=== PATIENT | female | born 1950 | race Asian ===

== ENCOUNTER → 2019-01-22 | Outpatient (CLI) | payer MEDICARE | END | disposition home or self-care (01) | LOC: LAB SHORT 11:05 → LAB 11:05 | PROVIDERS: Physician Assistant Medical | DX: N89.8 Other specified noninflammatory disorders of vagina (principal) | CPT/HCPCS: 88175 ==

== ENCOUNTER → 2019-01-22 | Outpatient (CLI) | payer MEDICARE | END | disposition home or self-care (01) | LOC: LAB EV 12:31 → LAB SHORT 12:31 | DX: N89.8 Other specified noninflammatory disorders of vagina (principal) | CPT/HCPCS: 87070; 87205 ==

== ENCOUNTER 2019-10-21 23:28 | Inpatient (IN) | payer MEDICARE ==
[~2019-10-21] VITALS: Ht 162.6 cm; Wt 56.4 kg
[2019-10-22 00:35] LABS: BASOPHILS PERCENT AUTO 0 % (0-2); EOSINOPHILS PERCENT AUTO 0 % (0-6); Hematocrit 33.1 % (33.0-51.0); Hemoglobin 10.2 g/dL (11.5-16.0); IMMATURE GRAN ABSOLUTE AUTO 0.07 K/mm3 (0.00-0.10); IMMATURE GRAN PERCENT AUTO 1 % (0-1); LYMPHOCYTES ABSOLUTE AUTO 0.53 K/mm3 (0.84-5.20); LYMPHOCYTES PERCENT AUTO 5 % (21-46); MONOCYTES ABSOLUTE AUTO 0.54 K/mm3 (0.16-1.47); MONOCYTES PERCENT AUTO 5 % (4-13); Mean Corpuscular HGB 27.3 pg (26.0-34.0); Mean Corpuscular HGB Conc 30.8 g/dL (31.5-36.5); Mean Corpuscular Volume 89 fL (80-100); NEUTROPHILS ABSOLUTE AUTO 8.97 K/mm3 (1.96-9.15); NEUTROPHILS PERCENT AUTO 89 % (41-73); Platelet Count 603 K/mm3 (150-400); RDW Coefficient Variation 14.6 % (11.7-14.2); RDW Standard Deviation 46.2 fL (35.1-46.3); Red Blood Cell Count 3.74 M/mm3 (3.80-5.20); White Blood Cell Count 10.11 K/mm3 (4.00-11.30)
[2019-10-22 00:54] LABS: Alanine Aminotransfer (ALT/SGP 25 U/L (12-78); Albumin, Blood 2.2 g/dL (3.4-5.0); Albumin/Globulin Ratio 0.4 (0.8-1.8); Alk Phos 93 U/L (50-136); Anion Gap 10 mmol/L (6-16); Aspartate Aminotrans (AST/SGOT 156 U/L (12-37); Bilirubin, Total 0.4 mg/dL (0.1-1.0); Blood Urea Nitrogen 20 mg/dL (8-24); Bun/Creatinine Ratio 31.3 (12.0-20.0); CO2, Blood 24 mmol/L (21-32); Calcium, Blood 8.5 mg/dL (8.5-10.1); Chloride, Blood 104 mmol/L (98-108); Creatinine, Blood 0.64 mg/dL (0.40-1.00); Glomerular Filtration Rate >60 (60-); Glucose, Blood 95 mg/dL (70-99); Potassium, Blood 4.1 mmol/L (3.5-5.5); Sodium, Blood 138 mmol/L (136-145); Total Protein, Blood 7.2 g/dL (6.4-8.2)
--- NOTE | 2019-10-22 18:31 | NUR ---
SHIFT SUMMARY PT TO FLOOR LATE THIS AFTERNOON. PT AND DAUGHTER ORIENTED TO ROOM. ANSWERED QUESTIONS FOR PT AND DAUGHTER ABOUT TREATMENT AND PLAN FOR ADMISSION. PT CURRENTLY SITTING UP IN BED, DENIES SOB AT THIS TIME. PT STATES IMPROVEMENT IN CONDITION OF LEGS.
--- NOTE | 2019-10-22 19:14 | NUR ---
Met with patient and physician and her friend from work. Pt lives at [facility]. She has seen a oncolgist in [place]. Pt denies pain but frequent grimace and discomfort in positioning. Pt goal is to not take medications and persue a more natural and spitual quest to her treatment. We reviewed hospice care and other options. After discussion of care. Pt was agreeable to speak with her doctor in [place] and asked me to call. Physican not in office today staff will have her call patient tomorrow. Patients jayy stated that they would like to care for her but they do not have the help and did not want her to pass away at the co-op. Patients sister is arriving [place]. Plan is to see if oncolgy can offer any palliative treatment that pt would accept and to transition home hopefully she will accept hospice support. She will also speak with her family [place] to discuss prognosis. Probable best discharge is to sisters home on hospice. Will suggest that her fiends form the co-op come all come to visit her as soon as possible.
[2019-10-23 05:33] LABS: Hematocrit 30.2 % (33.0-51.0); Hemoglobin 9.2 g/dL (11.5-16.0); Mean Corpuscular HGB 26.7 pg (26.0-34.0); Mean Corpuscular HGB Conc 30.5 g/dL (31.5-36.5); Mean Corpuscular Volume 88 fL (80-100); Mean Platelet Volume 8.9 fL (9.1-12.4); Platelet Count 523 K/mm3 (150-400); RDW Coefficient Variation 14.6 % (11.7-14.2); RDW Standard Deviation 46.7 fL (35.1-46.3); Red Blood Cell Count 3.44 M/mm3 (3.80-5.20); White Blood Cell Count 10.28 K/mm3 (4.00-11.30)
[2019-10-23 05:57] LABS: Alanine Aminotransfer (ALT/SGP 21 U/L (12-78); Albumin, Blood 2.3 g/dL (3.4-5.0); Albumin/Globulin Ratio 0.5 (0.8-1.8); Alk Phos 85 U/L (50-136); Anion Gap 11 mmol/L (6-16); Aspartate Aminotrans (AST/SGOT 149 U/L (12-37); Bilirubin, Total 0.4 mg/dL (0.1-1.0); Blood Urea Nitrogen 20 mg/dL (8-24); Bun/Creatinine Ratio 32.4 (12.0-20.0); CO2, Blood 25 mmol/L (21-32); Calcium, Blood 8.2 mg/dL (8.5-10.1); Chloride, Blood 102 mmol/L (98-108); Creatinine, Blood 0.62 mg/dL (0.40-1.00); Globulin, Blood 4.4 g/dL (2.2-4.0); Glomerular Filtration Rate >60 (60-); Glucose, Blood 79 mg/dL (70-99); Potassium, Blood 3.8 mmol/L (3.5-5.5); Sodium, Blood 138 mmol/L (136-145); Total Protein, Blood 6.7 g/dL (6.4-8.2)
--- NOTE | 2019-10-23 07:15 | NUR ---
SHIFT SUMMARY PT IS A 69 Y/O FEMALE, ADMITTED FOR METASTATIC CA AND FLUID OVERLOAD. SHE IS A&O X 4, AND A SBA/INDEPENDENT IN THE ROOM. PT REPORTS THAT HER BREATHING IS "MUCH BETTER" THIS AM, THOUGH HER LEGS ARE STILL AT 4+ PITTING EDEMA. VITAL SIGNS STABLE. PT DID REPORT MILD PAIN IN HER LOWER LEGS FROM "RUBBING" ON THE BED SHEETS, WHICH WAS IMPROVED AFTER LEGS WERE WRAPPED WITH GAUZE. NO OTHER COMPLAINTS OF PAIN, NAUSEA OR SOB. NO OTHER ACUTE CHANGES IN PT CONDITION NOTED. REPORT GIVEN TO ONCOMING RN.
--- NOTE | 2019-10-23 19:22 | NUR ---
SHIFT SUMMARY PT AXO, PLEASANT AND COOPERATIVE WITH CARE. DRESSINGS TO BLE CHANGED THIS SHIFT. MINOR WEEPING NOTED. +4 PITTING EDEMA TO BLE. PT DENIES PAIN, NV AND SOB. PT UP WITH ASSISTANCE FROM DAUGHTER TO BATHROOM THIS SHIFT. NO ACUTE CHANGES THIS SHIFT. VSS. BED IN LOW POSITION, CALL LIGHT WITHIN REACH. PT REFUSED LOVENOX THIS SHIFT. DAUGHTER AND ANOTHER SUPPORT PERSON IN PT ROOM THROUGHOUT THE DAY. DNR BAND PLACED AND PT STATES THAT SHE INDEED DOES WANT TO BE DNR STATUS.
--- NOTE | 2019-10-23 19:23 | NUR ---
Notified Dr manzanares this AM pt gave permission to send her diagnostics. Review of levels of care with patient and biopsy and having inpatient versus outpatient care. pt is going to have biopsy and then form plan iwth doctor manzanares for palliative treatment options versus hospice. Family at bedside will follow in am for support.
[2019-10-24 05:27] LABS: International Normalized Ratio 1.03
--- NOTE | 2019-10-24 06:51 | NUR ---
SHIFT SUMMARY PT IS A 69 Y/O FEMALE, ADMITTED FOR METASTATIC CA AND FLUID OVERLOAD. SHE IS A&O X 3, AND SBA/INDEPENDENT UP IN THE ROOM. PT DENIED ANY COMPLAINTS OF PAIN, NAUSEA OR SOB. VITAL SIGNS STABLE. PT IS AWAITING A THORACENTESIS TODAY. PER DAY SHIFT REPORT, PT REQUIRED A PT/PTT DONE PRIOR TO THE THORACENTESIS, WHICH WAS ORDERED AFTER CONSULTING DR CASTANEDA. NO OTHER ACUTE CHANGES IN PT CONDITION NOTED. WILL CONTINUE TO MONITOR AND TREAT PER EMAR UNTIL HAND OFF TO DAY SHIFT RN.
[2019-10-24 11:35] LABS: Automated BF RBC Count 0.002 M/mm3 (0-0); Automated BF WBC Count 0.756 K/mm3 (0-999); Body Fluid WBC Count 756 /mm3 (0-999)
[2019-10-24 12:01] LABS: Glucose, Body Fluid 86 mg/dL; Protein, Body Fluid 4.5 g/dL
[2019-10-24 12:03] LABS: Color, Body Fluid L Yellow (None-Yellow); Total Cell Count, Body Fluid 100
[2019-10-24 12:09] LABS: pH, Body Fluid 6.1
[2019-10-24 12:22] LABS: Lactate Dehydrogenase, Body Fl 1382 U/L
--- NOTE | 2019-10-24 15:52 | NUR ---
pt resting distraught over not feeling well not wanting totake medications. plan is to keep her here today. Hope is she can get some treatment on sunday. limited visit she was getting a massage from her daughter.
--- NOTE | 2019-10-24 18:48 | NUR ---
PATIENT STARTED OUT WITH NAUSEA THIS MORNING AND WAS GIVEN SOME IV ZOFRAM WHICH DID NOT SEEM TO HELP. SHE THEN WENT TO HER [facility] AND RETURNED FEELING MISERABLE; DR MILLER WAS PLANNING TO DISCHARGE THE PATIENT HOME HOWEVER HELD THE DISCHARGE DUE TO THE PATIENT CONDITION. PATIENT'S DAUGHTER HAS REMAINED AT HER BEDSIDE AND HAS BEEN A HUGE HELP. PATIENT DID REFUSE IV LASIX AND DR MILLER NOTIFIED SO IT WAS DISCONTINUED.
--- NOTE | 2019-10-25 07:54 | NUR ---
SHIFT SUMMARY PATIENT ALERT AND ORIENTED. PATIENT WAS FEELING SHORT OF BREATH AND WAS PLACED ON 1 LITER OF O2 VIA NASAL CANULA. PATIENT HAD NOT COMPLAINT OF PAIN AND WAS ABLE TO SLEEP MOST OF THE NIGHT. IV PATENT AND FLUSHED. BED IN LOWEST POSITION WITH WHEELS LOCKED. CALL LIGHT WITHIN REACH. REPORT GIVEN TO ONCOMING RN.
--- NOTE | 2019-10-25 10:30 | NUR ---
[facility] CARE VISIT: REQUEST PER ACC, PER DR MAXWELL TO REVIEW HOSPICE and goals of care. Review of EMR, [facility] care notes and Case conferenced with pt's bedside RN prior to my visit. Upon arrival, pt sitting at side of bed, trying to lean/rest on her side sitting upright. She does not appear comfortable. I introduced myself to pt and to malinda, Merissa, who is visiting from out of area. Pt appears profoundly fatigued, frail, sallow in color. She denies pain or need for any comfort medications. When asked if there was anything she could think of that would make her more comfortable she said a back rub. I spent 15 minutes rubbing pt's back, shoulders and neck gently while I spoke to pt and her malinda. She is cachectic with no muscle mass noted. She stated she was comforted and calmed at the conclusion of my visit. Hot tea and refreshments brought to Merissa. She also appears very fatighed and stressed with the current situation. She is very attentive to her mom. Terell consistently verbalizes her desire to follow thru with bx results, see her oncologist & pursue any treatment available for her cancer. When discussing d/c planning, pt & daughter are clear that Terell cannot return to the home in [place] on [address] [facility] because there are no caregivers there and it is 45 minutes or more from medical help. Malinda states she lives remotely and three hours away from her mom's drs, so going to her home is not an option either. We discussed the limited options locally that would provide the 24 hour care Terell needs & that would accomodate her desire to see her drs in [place] and get chemo or other treatments from her drs in [facility]. We reviewed hospice goals of care extensively. Pt is not interested in hospice or comfort care at this time. She and Merissa are interested in finding placement in [place]. Community options of Adult Foster Care, LTC in long term and Assisted living discussed. I believe pt's care needs are greater than an assisted living facility could manage and told both pt/malinda this. I inquired re: resources to help pay for care and explained that medical insurance does not pay for fdc 24 hour care. Merissa states there are some savings available to assist with paying for care. I gave her a ballpark figure of what LTC or adult FH might cost locally. I explanied that I do not know if that is consistent for [facility]/facilities. Merissa/pt informed there are no CM staff on weekend to meet with them but will be Sunday. Manufacturing Technology Analyst order placed with details of pt's placement options needs noted. Report on my visit given to pt's RN and Dr Maxwell.
--- NOTE | 2019-10-25 18:31 | NUR ---
PATIENT DENIES PAIN AND DISCOMFORT TODAY AND STATES SHE FEELS MUCH BETTER THAN YESTERDAY. HYPOTENSIVE BUT NOT SYMPTOMATIC. RE-WRAPPED BLE WITH KERLEX PER PATIENT REQUEST FOR WEEPING. PATIENT JUST REQUESTED A FULL LIQUID, VEGAN DIET FROM THE [facility]; ORDER PLACED ASKED. DAUGHTER REMAINS AT BESIDE. WILL CONTINUE TO MONITOR AND PROVIDE CARE NEEDED.
--- NOTE | 2019-10-26 06:45 | NUR ---
SHIFT SUMMARY PATIENT ALERT AND ORIENTED. VERY PLEASANT. RESTED IN BED ALL NIGHT. WEARING 1 LITER O2 VIA NASAL CANULA NEEDED. IV PATENT AND FLUSHED. BED IN LOWEST POSITION WITH WHEELS LOCKED. CALL LIGHT WITHIN REACH. REPORT GIVEN TO ONCBEAR DRISCOLL.
--- NOTE | 2019-10-26 10:00 | NUR ---
[facility] care clinical visit made. Pt is not taking any PO medications for comfort or otherwise per eMAR. She is lying on her side while evy rubs back and hips. Pt reports this is the best method of pain relief/management for her to be able to rest and relax. Pt appears much more comfortable and relaxed this am than she did yesterday. She asks if I have any news on her biopsy or anything else and I tell her I do not. I let them know staff would be in tomorrow and I had left messages for them with details of her needs for help with dc planning. Spoke with RN after my visit. [facility] will continue supportive visits and renew the conversation re: EOL care pending biopsy results and/or pt's wishes to explore that further pending discussions with Drs on tx options available or if no tx options available.
--- NOTE | 2019-10-26 15:41 | NUR ---
PATIENT SEEMS TO BE DOING ABOUT WELL YESTERDAY. NO COMPLAINTS OF PAIN, NAUSEA OR DISCOMFORT. PATIENT AMBULATES IN ROOM WITH FWW WITH DAUGHTER SBA. VITALS HAVE BEEN STABLE. BLE CONTINUE TO HAVE +4 WEEPING EDEMA, WRAPPED WITH KERLIX. PATIENT CONTINUES TO WAIT FOR DISCHARGE PENDING A HEAD PORTER CONSULT REGARDING HOUSING. WILL CONTINUE TO MONITOR AND PROVIDE CARE NEEDED.
--- NOTE | 2019-10-27 07:39 | NUR ---
SHIFT SUMMARY PATIENT ALERT AND ORIENTED. SLEPT WELL ALL NIGHT. IV PATENT AND FLUSHED. PATIENT SHOWERED AT HER REQUEST AND LEGS REWRAPPED. BED IN LOWEST POSITION WITH WHEELS LOCKED. CALL LIGHT WITHIN REACH. REPORT GIVEN TO ONCOMING RN.
--- NOTE | 2019-10-27 14:38 | NUR ---
Called by daughter for help with advance care planning. requesting information on a will. information given and where she can get a notary. aroma therpy given to pt she is resting. Awaiting path report. Daughter states she is hoping to fight some of the progression of disease.
--- NOTE | 2019-10-27 15:25 | NUR ---
permission for care i, glenis guo [facility] occupational health nursing director, received permission to provide care on 10-28-2019
--- NOTE | 2019-10-27 15:56 | NUR ---
Initial spiritual care note: Met with pt and dtr at bedside. Terell is soft-spoken with a gentle demeanor. She denies pain, but admits to being concerned about dx and POC. Awaiting biopsy and oncology input. She beleives in God and an afterlife. She denies fear of . Dtr appears concerned, loving, and devoted. Supported and affirmed beleifs. Provided theraputic listening with emotional affirmation. Pt and family complimentary of palliative care team's support. I will remain available.
--- NOTE | 2019-10-27 19:36 | NUR ---
SHIFT SUMMARY NO ACUTE CHANGES THIS SHIFT. PT HAS HAD NO COMPLAINTS OF SHORTNESS OF BREATH, NAUSEA, OR PAIN THIS SHIFT. PT UP TO BATHROOM WITH 1 ASSIST AND FWW. OXYGEN AT 1 LITER VIA NC. FAMILY AT BEDSIDE. WAITING FOR DR. TILLMAN TO CONSULT. REPORT GIVEN TO JUDD RN. CALL LIGHT IN REACH.
--- NOTE | 2019-10-28 19:35 | NUR ---
SHIFT SUMMARY PT STILL NOT HAVING MUCH APPETITE. THIS RN ENCOUARGED TO DRINK FLUIDS. PT TOOK SHOWER THIS SHIFT WITH STUDENT NURSE. PT TIRED AFTER THIS AFTERNOON. UP TO BATHROOM WITH ASSIST. STILL DENIES NEEDING ANYTHING FOR PAIN OR NAUSEA. FAMILY IN WITH PT MOST OF THE DAY. DR. TILLMAN TO BE IN TO SEE PT AGAIN IN THE AM. NO ACUTE CHANGES THIS SHIFT. CALL LIGHT IN REACH. REPORT GIVEN TO JUDD DRISCOLL.
--- NOTE | 2019-10-29 18:32 | NUR ---
SHIFT SUMMARY- PT A/O, PLESANT AND COOPERATIVE. FAMILY AT BEDSIDE. PT WENT FOR A BIOPSY THIS AFTERNOON. HER APPITITE IS POOR. AMBULATING TO THE RESTROOM WITH ONE ASSIST.
--- NOTE | 2019-10-29 23:28 | NUR ---
LATE ENTRY 2300 ANALYTICAL TECHNICIAN EXPRESSED THAT WHILE PATIENT WAS IN RESTROOM, HAD AN EPISODE OF EMESIS. WENT IN TO CHECK ON PATIENT. EXPLAINED TO PATIENT THAT WE HAVE MEDICAL INTERVENTIONS THAT CAN BE USED TO HELP EASE THE NAUSEA. PATIENT DECLINED NEED FOR SUCH INTERVENTION AT THIS TIME.
--- NOTE | 2019-10-29 23:28 | NUR ---
LATE ENTRY 2129 PATIENT STATED THAT SHE WAS FEELING NAUSEATED, BUT REFUSED ANY MEDICAL INTERVENTION AT THAT TIME.
--- NOTE | 2019-10-30 06:00 | NUR ---
SHIFT SUMMARY A/O, ABLE TO MAKE NEEDS KNOWN. COOPERATIVE WITH CARE. CALLS AND ANSWERS QUESTIONS APPROPRIATELY. NO C/O PAIN/DISCOMFRT. DID STATE NAUSEA; BUT WHEN OFFERED INTERVENTION, REFUSED. APPEARED TO REST MUCH OF SHIFT. UP 1P ASSIST TO BATHROOM. NO ACUTE CHANGES NOTED OVERNIGHT. BED REMAINED IN LOWEST POSITION. CALL LIGHT AND BELONGINGS WITHIN REACH. WCTM. REPORT TO ONCOMING RN.
--- NOTE | 2019-10-30 17:43 | NUR ---
Routine spiritual care note: Terell was asleep, but awakens to presence and voice. She appears very weak. Pt's friend, Dada, and her dtr were at bedside. All three were pleasantly withdrawn and said little. Terell smiles weakly and denies pain/concerns. She tells me they expect biospy results tomorrow and will determine POC then. Dtr seems on the edge of tears, but did not wish to talk. Migration Agent services will remain available.
--- NOTE | 2019-10-30 18:43 | NUR ---
SHIFT SUMMARY PT HAS NOT BEEN DRINKING/EATING THIS SHIFT. PT HAS NOT VOIDED ALL SHIFT AND HAS BEEN SLEEPING MOST OF THE DAY. THIS RN TALKED WITH DR. BRAVO AND DISCUSSED WITH HER THAT PT NOT EATING/DRINKING/VOIDING. DR. BRAVO ORDERED CLINIMIX AND PT HAS AGREED TO HAVE IVF. WILL REPORT TO NOC RN.
--- NOTE | 2019-10-31 07:00 | NUR ---
SHIFT SUMMARY A/O, ABLE TO MAKE NEEDS KNOWN. COOPERATIVE WITH CARE. CALLS AND ANSWERS QUESTIONS APPROPRIATELY. NO C/O PAIN/DISCOMFORT. REFUSED PEPCID; STATED DID NOT HAVE ANY ACID INDIGESTION AT THAT TIME. 1P ASSIST /c FWW AND GB; SLOW STEADY GAIT. NEW ORDER FOR 1BAG OF CLINIMIX; INFUSED T/O SHIFT W/O COMPLICATION. UP SEVERAL TIMES TO VOID. VSS/AFEBRILE. NO ACUTE CHANGES NOTED OVERNIGHT. BED IN LOWEST POSITION. CALL LIGHT AND BELONGINGS WITHIN REACH. WCTM. REPORT TO ONCOMING RN.
--- NOTE | 2019-10-31 12:53 | NUR ---
[facility] Care visit to pt and her malinda, Merissa. Pt is sound asleep and did not wake when I entered and spoke to her and Merissa. Pt does not look comfortable. Malinda reports that Terell won't take medications for pain, nausea, anxiety because she is super sensitive to medications and is afraid of bad reactions. Merissa and I stepped out of the room and spoke for a time. Merissa is needing help researching placement options for her mom, regardless of what Terell chooses re: treatment. Discussed TRAY and need to hire caregivers if she chose that level of semi-independent care setting. Discussed residential and Adult Foster homes and gave Merissa a list of local . Case conferenced with CM and passed on Merissa's request to meet with them as soon as possible to discuss. Pt is still awaiting bx report and further information from Dr Wilburn. Discussed with Merissa possibility that her mom may not tolerate treamtments for her advanced cancer. Merissa states her mom is aware that she is growing weaker and more ill by the day. Merissa is showing caregiver fatigue and distress. She has not left the hospital for many days and has not been home to [facility] since arriving here last week. She reports fatigue from massaging her mom for pain relief for many hours a day. Encouraged more rest, self care and time outside/away for respite for herself. Tea brought to her. [facility] Care to continue to visit for support.
--- NOTE | 2019-10-31 18:18 | NUR ---
SHIFT SUMMARY. PT CONTINUES WITH POOR APPETITE AND LETHARGY. PT REPORTS ABD DISCOMFORT ALTHOUGH DOES NOT WANT ANY FURTHER INTERVENTIONS FOR SYMPTOM MANAGEMENT. NO SOB OR N/V. NO NEW CHANGES.
--- NOTE | 2019-11-01 04:57 | NUR ---
SHIFT SUMMARY: VSS. AFEB. DENIES PAIN IN GENERAL. DENIES ABD TENDERNESS W/PALPATION. LLE +4 PITTING EDEMA, RLE +3 PITTING EDEMA. NO VISIBLE WHEEPING. SUCKING ON ICE CHIPS AND STATES SHE WAS ABLE TO TOLERATE 5 PIECES OF FRUIT. DENIES N/V. REFUSED SCHEDULED MEDS. SMILES AND INTERACTS PLEASANTLY. MAKES NEEDS KNOWN. A/OX3. HAS SLEPT THROUGH MUCH OF THE NIGHT. WILL CONT TO MONITOR.
[2019-11-01 06:00] LABS: BASOPHILS ABSOLUTE AUTO 0.01 K/mm3 (0.00-0.23); BASOPHILS PERCENT AUTO 0 % (0-2); EOSINOPHILS PERCENT AUTO 0 % (0-6); Hematocrit 28.8 % (33.0-51.0); Hemoglobin 8.8 g/dL (11.5-16.0); IMMATURE GRAN ABSOLUTE AUTO 0.12 K/mm3 (0.00-0.10); IMMATURE GRAN PERCENT AUTO 1 % (0-1); LYMPHOCYTES ABSOLUTE AUTO 0.37 K/mm3 (0.84-5.20); LYMPHOCYTES PERCENT AUTO 4 % (21-46); MONOCYTES ABSOLUTE AUTO 0.59 K/mm3 (0.16-1.47); MONOCYTES PERCENT AUTO 6 % (4-13); Mean Corpuscular HGB 26.8 pg (26.0-34.0); Mean Corpuscular HGB Conc 30.6 g/dL (31.5-36.5); Mean Corpuscular Volume 88 fL (80-100); Mean Platelet Volume 9.6 fL (9.1-12.4); NEUTROPHILS ABSOLUTE AUTO 8.51 K/mm3 (1.96-9.15); NEUTROPHILS PERCENT AUTO 89 % (41-73); Platelet Count 456 K/mm3 (150-400); RDW Coefficient Variation 16.2 % (11.7-14.2); RDW Standard Deviation 50.4 fL (35.1-46.3); Red Blood Cell Count 3.28 M/mm3 (3.80-5.20)
[2019-11-01 06:36] LABS: Alanine Aminotransfer (ALT/SGP 23 U/L (12-78); Albumin, Blood 1.7 g/dL (3.4-5.0); Albumin/Globulin Ratio 0.4 (0.8-1.8); Alk Phos 92 U/L (50-136); Anion Gap 9 mmol/L (6-16); Aspartate Aminotrans (AST/SGOT 153 U/L (12-37); Bilirubin, Total 0.4 mg/dL (0.1-1.0); Blood Urea Nitrogen 21 mg/dL (8-24); Bun/Creatinine Ratio 43.7 (12.0-20.0); CO2, Blood 24 mmol/L (21-32); Calcium, Blood 8.2 mg/dL (8.5-10.1); Chloride, Blood 105 mmol/L (98-108); Creatinine, Blood 0.48 mg/dL (0.40-1.00); Globulin, Blood 4.3 g/dL (2.2-4.0); Glomerular Filtration Rate >60 (60-); Glucose, Blood 69 mg/dL (70-99); Potassium, Blood 4.2 mmol/L (3.5-5.5); Sodium, Blood 138 mmol/L (136-145)
--- NOTE | 2019-11-01 12:31 | NUR ---
LIPIDS/CLINIMIX This RN attempted to hang IV meds above. Patient declined at this time. Will try again when patient is agreeable.
--- NOTE | 2019-11-01 17:11 | NUR ---
Shift Summary A/Ox4, cooperative with care. Patient had a shower and worked with physical therapy today. Multivitamins with Clinimix started, Soledad (Advertising Sales Consultant) aware. Denies pain, nausea, vomiting. PO remains inadequate. Up in room with assistance. Merissa (daughter) at bedside throughout the day. No other acute concerns.
--- NOTE | 2019-11-02 05:31 | NUR ---
SHIFT SUMMARY: A/OX3. MAKES NEEDS KNOWN. AMB W/ 1 ASSIST AND FWW TO BATHROOM. SITS AT EDGE OF BED FOR SEVERAL MINUTES TRYING TO CATCH BREATH PRIOR TO GETTING UP TO WALK. 02 SAT 95% ON 1L VIA NC. REPORTING DISCOMFORT IN ABDOMEN, DESCRIBES IT A BLOATED FEELING. DOES NOT WANT ANY MEDICATIONS, ROUTINE OR PRN. PLEASANT, SMILING AND INTERACTIVE. APPEARS TO HAVE SLEPT THROUGH MUCH OF THE NIGHT, RESTING QUIETLY IN BED. WILL CONT TO MONITOR.
[2019-11-02 05:33] LABS: Anion Gap 11 mmol/L (6-16); Blood Urea Nitrogen 23 mg/dL (8-24); Bun/Creatinine Ratio 44.1 (12.0-20.0); CO2, Blood 23 mmol/L (21-32); Calcium, Blood 8.1 mg/dL (8.5-10.1); Chloride, Blood 105 mmol/L (98-108); Creatinine, Blood 0.52 mg/dL (0.40-1.00); Glomerular Filtration Rate >60 (60-); Glucose, Blood 78 mg/dL (70-99); Magnesium, Blood 2.4 mg/dL (1.6-2.4); Phosphorus, Blood 2.1 mg/dL (2.5-4.9); Potassium, Blood 4.5 mmol/L (3.5-5.5); Sodium, Blood 139 mmol/L (136-145)
--- NOTE | 2019-11-02 18:16 | NUR ---
Shift Summary Patient has been weaker today, difficulty to stand from sitting on commode and requiring moderate assist which is new to this RN. No c/o pain, nausea, vomiting. VSS, tolerating parenteral nutrition well. No other concerns.
[2019-11-03 06:11] LABS: Anion Gap 11 mmol/L (6-16); Blood Urea Nitrogen 25 mg/dL (8-24); Bun/Creatinine Ratio 51.1 (12.0-20.0); CO2, Blood 22 mmol/L (21-32); Chloride, Blood 104 mmol/L (98-108); Creatinine, Blood 0.49 mg/dL (0.40-1.00); Glomerular Filtration Rate >60 (60-); Glucose, Blood 71 mg/dL (70-99); Magnesium, Blood 2.5 mg/dL (1.6-2.4); Phosphorus, Blood 2.2 mg/dL (2.5-4.9); Potassium, Blood 4.4 mmol/L (3.5-5.5); Sodium, Blood 137 mmol/L (136-145)
--- NOTE | 2019-11-03 07:29 | NUR ---
SHIFT SUMMARY: A/OX3. COMMUNICATES NEEDS. UP W/1 ASSIST IN ROOM. MOTIVATED TO GET STRONGER AND IS TAKING SHORT WALKS AROUND HER ROOM EVERY TIME SHE GETS UP. ABD LARGE, HARD, NONTENDER. +FLATUS AND PT REPORTS PASSING SMALL STOOLS. DENIES ABD PAIN. NO ACUTE CHANGES.
--- NOTE | 2019-11-03 15:04 | NUR ---
Pal Care Visit: Met with pt, evy and family friend, Ilda. Pt is c/o increased sob, even with turning in bed and soboe/conversation noted. Pt's abdomen is firm, extended/rounded, appearing in late months of gestation. Pt describes spasmotic, gripping abdominal pain that made her feel like she was being "bent in half". Progression of s/s with abdominal masses or ascites discussed, including possibility of diaphram function being impaired with pressure from abd distention. Pt has continued to decline medications for comfort. IV nutrition and fluids are running, which pt has now agreed upon. EMR and Dr's PN reviewed. Plan is for pt to receive first chemo tx for stage IV ovarian cancer here in the hospital and then f/u as an outpatient with Dr Wilburn for ongoing scheduled treatments that he discussed with pt/family this am. Pt will be d/c'd from hospital after first tx. This was discussed with Merissa and Terell. Terell was in/out of dosing. She and Merissa asked about completing an advanced directive. I reviewed a blank AD and POLST with them and we completed a POLST together based on pt's expressed wishes. When discussing s/s that pt was experiencing and anxious about she expressed "this is the most humilating time in my life". We explored that statement further. Pt is feeling very vulnerable and uncomfortable with her illness and her growing needs for care. We discussed the human condition and expectation that each of us would need help from another in our lives and at end of life. Discussed that some of pt's s/s may not be alieviated with chemo and she may have worsening s/s or new s/s experienced with tx. Pt ate a few bites of her soup at lunch and is drinking water. Her appetite is nonexistant but she forces herself to try to eat bites per pt/evy. Time spent for support of pt and her daughter, listening and encouragement to express her feelings. Pt is normally very stoic and does not express her feelings often. Report given to pt's RN on my visit and POLST done/awaiting Dr segundo. Also called update report to FARHAT Roberson, assisting Josef in exploring d/c options for care needed on d/c.
--- NOTE | 2019-11-03 18:13 | NUR ---
SHIFT SUMMARY PT A/O X 3. FAMILY AND FRIENDS AT THE BEDSIDE TO MAKE REQUESTS ON BEHALF OF PT. TOILETING COMPLETED REQUESTED. PT HAD A LOWER EXTREMITY DUPLEX COMPLETED TO R/O DVT. PT EXHIBITS PROGRESSIVE RESTLESSNESS DEMONSTRATED THROUGH FREQUENT REPOSITIONING. NO ACUTE CHANGES NOTED THROUGHOUT SHIFT. PT HAD PALLIATIVE CARE CONSULT WITH FAMILY TODAY, NETWORK ANNOUNCER MET WITH PT. LN TO CONTINUE TO MONITOR.
[2019-11-04 05:59] LABS: BASOPHILS ABSOLUTE AUTO 0.01 K/mm3 (0.00-0.23); BASOPHILS PERCENT AUTO 0 % (0-2); EOSINOPHILS PERCENT AUTO 0 % (0-6); Hematocrit 29.3 % (33.0-51.0); Hemoglobin 8.8 g/dL (11.5-16.0); IMMATURE GRAN ABSOLUTE AUTO 0.13 K/mm3 (0.00-0.10); IMMATURE GRAN PERCENT AUTO 1 % (0-1); LYMPHOCYTES ABSOLUTE AUTO 0.48 K/mm3 (0.84-5.20); LYMPHOCYTES PERCENT AUTO 4 % (21-46); MONOCYTES ABSOLUTE AUTO 0.65 K/mm3 (0.16-1.47); MONOCYTES PERCENT AUTO 6 % (4-13); Mean Corpuscular HGB 26.5 pg (26.0-34.0); Mean Corpuscular Volume 88 fL (80-100); Mean Platelet Volume 9.6 fL (9.1-12.4); NEUTROPHILS ABSOLUTE AUTO 10.11 K/mm3 (1.96-9.15); NEUTROPHILS PERCENT AUTO 89 % (41-73); Platelet Count 507 K/mm3 (150-400); RDW Coefficient Variation 16.4 % (11.7-14.2); RDW Standard Deviation 50.9 fL (35.1-46.3); Red Blood Cell Count 3.32 M/mm3 (3.80-5.20); White Blood Cell Count 11.38 K/mm3 (4.00-11.30)
[2019-11-04 06:17] LABS: Alanine Aminotransfer (ALT/SGP 28 U/L (12-78); Albumin, Blood 1.7 g/dL (3.4-5.0); Albumin/Globulin Ratio 0.4 (0.8-1.8); Alk Phos 117 U/L (50-136); Anion Gap 10 mmol/L (6-16); Aspartate Aminotrans (AST/SGOT 193 U/L (12-37); Bilirubin, Total 0.5 mg/dL (0.1-1.0); Blood Urea Nitrogen 27 mg/dL (8-24); Bun/Creatinine Ratio 67.7 (12.0-20.0); CO2, Blood 23 mmol/L (21-32); Chloride, Blood 102 mmol/L (98-108); Globulin, Blood 4.6 g/dL (2.2-4.0); Glomerular Filtration Rate >60 (60-); Glucose, Blood 90 mg/dL (70-99); Magnesium, Blood 2.5 mg/dL (1.6-2.4); Phosphorus, Blood 2.2 mg/dL (2.5-4.9); Potassium, Blood 4.5 mmol/L (3.5-5.5); Sodium, Blood 135 mmol/L (136-145); Total Protein, Blood 6.3 g/dL (6.4-8.2)
--- NOTE | 2019-11-04 12:00 | NUR ---
Pal Care visit and case conference with Chaplain Mitali, RN and daughter. Upon my arrival, two RN's with PPE on for administering first dose of chemo entering room to provide care and start of tx. Merissa, daughter, has valid worry re: her own well being. She is tearful & anxious re: start of tx, precautions, danger to herself and her mom. She expresses need for "counseling" due to feeling she is at a breaking point. Much time spent listening and coaching Merissa on self care and healthy boundaries she must set in regard to care of her mom. Her mom wants her to stay nights with her. She has been here during the day, every day, for weeks. She has been away from her own home and family for weeks. Sometimes she stays at family friend's hm and is not sleeping, eating well or getting outside these past weeks. She has gently tried to help her mom process information and make good decisions in regard to her care but is suffering many consequences of her mom's health care decisions. Merissa reports experiencing mental and physical s/s, especially hand and forearm tenderness from non stop massaging that pt requests for pain relief. Spoke to re: precautions due to chemotherapy for evy and was given instructions that evy should keep safe distance and NO MASSAGING for at least 48 hours after tx has been infused. These instructions given to daughter and pt's RN. I asked questions of RN to help daughter understand what she could help her mom with and what she should not do while visiting. RN available to answer those questions. Pt has medications ordered for pain and nausea but declines them. When evy asked what she could do to help her mom with pain if she could not massage, she was instructed to encourage her mother to take the medications being offered for treatment of her symptoms. Merissa was encouraged by a staff person to get a durable power of civil rights attorney to help her mom with finances. Blank OR durable power of civil rights attorney form brought to her. Polst form signed by pt was taken to the DR for signature and copy placed on the chart and sent to medical records. Original was given to MERISSA. When I returned to the room with hot chocolate for Merissa, I made sure pt understood that Merissa was not able to maintain close proximity, assist with care or massage for at least 48 hours after her last chemo tx. Pt is profoundly fatigued and appears to grow weaker each day. She nods in understanding but it is not clear to me that she understands. Report on my visit given to Dr Guzman and Assistant Baseball Coach with request for continued visit to support Josef. Pt's daughter is suffering from exhaustion, emotional distress and cg fatigue. Pal care to continue visits for support also.
--- NOTE | 2019-11-04 18:10 | NUR ---
Routine spiritual care note: Several lengthy visits with Terell and her dtr Merissa. Merissa and I spoke at length about her mom's stoicism. Her recluctance to recieve pain medicine is diturbing to Merissa. Merissa is also clearly emotionally and physically exhausted. I provided gentle career and guidance counselor and encouragement to good effect. Then, I spoke to Terell alone in room. We explored her veronica and her refusal of pain meds. Apparently, she's had one bad experience with anesthesia in the past. With gentle career and guidance counselor and encouragement, she agreed to recieve small doses of pain medication. She states she is not fearful of and can feel her body dying. She does not want to suffer. She tells me she is going to "give this chemo a couple of days" and see how she tolerates it. She also states that her community is ready to welcome her back. Merissa, Terell and I discussed allowing Merissa to take a break for a day or two for her own health and well-being. Terell agreed that Merissa needed to get some rest and encouraged her dtr to leave for this reason. Terell appears more frail today. She was very weak. Facilitated Notary for legal documents and Advanced Directive completion. Copies made. AD hand carried to medical records. Terell named her dtr as MPOA. She does not want heroic measures to sustain life. I will remain available.
--- NOTE | 2019-11-04 19:16 | NUR ---
SHIFT SUMMARY PT AWAKE DURING SHIFT REPORT, RESTING QUIETLY. PT WEAK WITH SEVERE ABD DISTENSION D/T OVARIAN CA WITH METS. LLE SWELLING THAT INCREASED THRU OUT THE DAY. PT C/O NAUSEA AT START OF SHIFT, NOT WANTING TO TAKE ANY MEDICATION. DR TILLMAN IN TO SEE PT WHEN DISCUSSING MEDS. PT AGREED TO TRY. PICC PLACED TO [facility] FOR CHEMO ADMIN. PT RECEIVED FIRST DOSES OF CHEMO PER EMAR. PREMEDICATED PER EMAR AND VERIFIED WITH CHRG RN, ADEEL. PT'S DAUGHTER AT , BUT LATER WENT HOME PER CHEMO PRECAUTIONS. LASHAY IN TO SEE PT SEVERAL TIMES. PT OFFERED PAIN MEDICATIONS MULTIPLE TIMES WELL. PT REPORTED PAIN WENT AWAY WITH MOVING. ADDITIONAL K PAD PROVIDED WELL. PT CALLED FOR ASSIST TO BTHRM TO VOID, BUT WAS VERY WEAK AND UNABLE TO MAKE IT TO BTHRM AGAIN DURING THE DAY. PT ATTEMPTED TO USE BEDPAN, BUT UNABLE TO VOID ON IT. PT ASSISTED TO BSC; 2P ASSIST. PT REPORTED NAUSEA D/T ABD SWELLING AND "NO ROOM" TO EAT OR DRINK ANYTHING. DR LOONEY NOTIFIED FOR REGLAN. GIVEN PER EMAR, WHICH SEEMED TO HELP SOME. PT HAS NOT BEEN ABLE TO EAT OR DRINK ANYTHING TODAY, EXCEPT A COUPLE OF ICE CUBES AND SIPS OF WATER. CALL LT IN REACH. PT ABLE TO USE.
[2019-11-05 05:38] LABS: BASOPHILS ABSOLUTE AUTO 0.01 K/mm3 (0.00-0.23); BASOPHILS PERCENT AUTO 0 % (0-2); EOSINOPHILS PERCENT AUTO 0 % (0-6); Hematocrit 29.6 % (33.0-51.0); Hemoglobin 8.9 g/dL (11.5-16.0); IMMATURE GRAN ABSOLUTE AUTO 0.35 K/mm3 (0.00-0.10); IMMATURE GRAN PERCENT AUTO 3 % (0-1); LYMPHOCYTES ABSOLUTE AUTO 0.37 K/mm3 (0.84-5.20); LYMPHOCYTES PERCENT AUTO 3 % (21-46); MONOCYTES ABSOLUTE AUTO 0.56 K/mm3 (0.16-1.47); MONOCYTES PERCENT AUTO 4 % (4-13); Mean Corpuscular HGB 26.6 pg (26.0-34.0); Mean Corpuscular HGB Conc 30.1 g/dL (31.5-36.5); Mean Corpuscular Volume 89 fL (80-100); Mean Platelet Volume 9.6 fL (9.1-12.4); NEUTROPHILS PERCENT AUTO 91 % (41-73); NRBC ABSOLUTE 0.02 K/mm3 (0.00-0.02); NRBC Auto 0.1 /100 WBC (0.0-0.2); Platelet Count 478 K/mm3 (150-400); RDW Coefficient Variation 16.6 % (11.7-14.2); RDW Standard Deviation 51.3 fL (35.1-46.3); Red Blood Cell Count 3.34 M/mm3 (3.80-5.20); White Blood Cell Count 13.69 K/mm3 (4.00-11.30)
[2019-11-05 06:02] LABS: Alanine Aminotransfer (ALT/SGP 33 U/L (12-78); Albumin, Blood 1.8 g/dL (3.4-5.0); Albumin/Globulin Ratio 0.4 (0.8-1.8); Alk Phos 140 U/L (50-136); Anion Gap 11 mmol/L (6-16); Aspartate Aminotrans (AST/SGOT 220 U/L (12-37); Bilirubin, Total 0.6 mg/dL (0.1-1.0); Blood Urea Nitrogen 28 mg/dL (8-24); Bun/Creatinine Ratio 43.5 (12.0-20.0); CO2, Blood 22 mmol/L (21-32); Calcium, Blood 8.1 mg/dL (8.5-10.1); Chloride, Blood 102 mmol/L (98-108); Creatinine, Blood 0.64 mg/dL (0.40-1.00); Glomerular Filtration Rate >60 (60-); Glucose, Blood 78 mg/dL (70-99); Potassium, Blood 5.1 mmol/L (3.5-5.5); Sodium, Blood 135 mmol/L (136-145); Total Protein, Blood 6.8 g/dL (6.4-8.2)
--- NOTE | 2019-11-05 10:13 | NUR ---
Pal Care visit earlier this am. She was asleep in her recliner. Respiratory rate 20/min, even, shallow and unlabored. She is not showing any nonverbal indicators of pain or distress at this time. I will return when pt is awake. Spoke with therapy yesterday who had to cancel afternoon visits due to pt's nausea/vomitting at side of bed. She has had nominal PO intake. Will cont to follow with Pv Design And Installation Technician and CM for support and s/s management.
--- NOTE | 2019-11-05 18:42 | NUR ---
SUMMARY- PT ALERT TO SELF AND FAMILY, PLACE AND CIRCUMSTANCE. PT IS FLAT AND WITHDRAWN. DENIES PAIN, DENIES NAUSEA. GOT UP INTO CHAIR AM FOR BREAKFAST, REFUSED SOLIDS, TOLERATING SIPS OF COCONUT JUICE AND CARROT JUICE. NAUSEA AROUND NOON, MEDICATED WITH ZOFRAN AND PT AGREED TO TAKE PEPSID. DENIES PAIN ALL DAY, ALTHOUGH APPEARS UNCOMFORTABLE AND GRIMACES WHENEVER CHANGING POSITION. UP IN RECLINER CHAIR MOST OF THE DAY. VOIDING SMALL AMOUNTS FREQ ABOUT 50ML OF CONCENTRATED URINE EACH VOID. CHECKED PVR 1230 WAS 250ML BUT MAY BE FREE FLUID IN LOW ABD AND NOT URINE. PT VOIDED LARGER AMOUNT PM OF 150ML LESS CONCENTRATED. PT HAD NOT BEEN ON CLINIMEX AND WORD WAS THAT PT HAD BEEN REFUSING. PT AGREED TO CLINIMIX THIS PM AND RN CALLED PRARMACY TO SEND A BAG. DR DAVIDSON CALLED AND TOLD THAT PT HAD NOT BEEN ON CLINIMIX AND OF HER MIN PO INTAKE AND CONCENTRATED URINE.
--- NOTE | 2019-11-05 19:00 | NUR ---
Routine spiritual care note: Terell appears quite frail today and emotionally withdrawn. She did not engage in conversation. She said she feels like she "has to pee all the time." She denied pain/discomfort and wanted to to get aid to take her to the bathroom. BRUSH MAKER and RN came immediately. I will continue to follow this pt.
--- NOTE | 2019-11-06 07:47 | NUR ---
PT WITH STAGE 4 OVARIAN CANCER WITH EXTENSIVE METS WILL BE 48 HOURS 1 DOSE OF CHEMO AT 1400. SHE IS VERY NAUSEATED MED X 2 WITH MILD HELPFUL EFFECT. SIPS FLUIDS ONLY. PT CONTINUES TO BE WEAKER WITH 2 MAX ASSIST TO BSC OR RECLINER. UP MULTIPLE TIMES WITH FWW GAITBELT TO BSC. UP TO RECLINER X 1. PT ATTEMPTED TO CLIMB OUT OF RECLINER AND HAD TO BE LIFTED TO BED WITH 2 MAX ASSIST. CONFUSED AT TIMES, ANXIOUS AND FEARFUL. MEDICATED WITH XANAX X 1 FOR AIR HUNGER ANXIETY WITH HELPFUL EFFECT ON AIR HUNGER BUT NOT EFFECTIVE ON ANXIETY. pt HAS SEVERE ASCITES WHICH WAS INCREASED OVERNIGHT BY CLINIMIX ADMINISTRATION AT 125 ML HR. pt SAID SHE OBJECTS TO USE OF CLINIMIX BUT ALLOWED IT OVERNIGHT. POOR URINE OUTPU. FALL PRECAUTIONS DUE TO INCREASED WEAKNESS WITH TERMINAL OVARIAN CANCER, INCREASED CONFUSION, POOR NUTRITION. dtr CHRISTA NOT IN DUE TO POST CHEMO PRECAUTIONS. SUPPORT AND EXTRA STAFF SUPPORT OFFERED.
[2019-11-06 11:22] LABS: Source, Urine Catheter
[2019-11-06 11:39] LABS: Bilirubin, Urine Neg (Neg); Blood, Urine 2+ (Neg); Glucose Qualitative, Urine Neg (Neg); Ketones, Urine 1+ (Neg); Leukocyte Esterase, Urine Neg (Neg); Nitrite, Urine Neg (Neg); Protein, Urine 2+ (Neg); Urobilinogen, Urine 1+ (Normal)
[2019-11-06 12:04] LABS: Appearance, Urine Clear (Clear); Color, Urine Yellow (P-Yellow)
[2019-11-06 12:05] LABS: White Blood Cells, Urine 0-2 /hpf (0-5)
[2019-11-06 12:06] LABS: Bacteria Few /hpf; Squamous Epithelial Cells Few /hpf (Few)
--- NOTE | 2019-11-06 12:47 | NUR ---
pt restless and more fatigued today, nursing states pain is adequate for patient. Daughter not in yet. will review with daughter the days after treament and s/s.
--- NOTE | 2019-11-06 16:29 | NUR ---
PATIENT WITH INCREASING CONFUSION AND LETHARGY SHIFT PROGRESS. PALLIATIVE CARE ASSESSED PATIENT AND SPOKE WITH DAUGHTER AND MD. NO NEW ORDERS.PATIENT REMAINS CURRENTLY ON BEDREST AFTER JACOBSEN PLACEMENT. TOO WEAK TO USE COMMODE.
--- NOTE | 2019-11-06 18:26 | NUR ---
Routine spiritual care note: Stopped by several times today to se Figueredo. She is quite frail and weak. UNable to stay awake long enough for conversation. Most recently she was very restless, pulling at catheter and reaching out. She admitted she was in pain and agreed to "a little" pain medication. RN immediately responded. Manager Application services will remain available.
--- NOTE | 2019-11-06 19:15 | NUR ---
Recheck on patient some restlessness at times per staff. review of prn meds ofor comfort. Goal is to support pt through side effects of chemo and update doctor Cosmo on symptoms and response. will follow up with daughter tomorrow on plan of care.
--- NOTE | 2019-11-07 04:29 | NUR ---
SHIFT SUMMARY: 69 Y/O FEMALE RESTED COMFORTABLY ALL SHIFT; PT VERY PALE WITH NO PO INTAKE NOTED; JACOBSEN DRAINING CLEAR YELLOW FLUID; KLINIMAX INFUSING AT 50ML/HR VIA LEFT UPPER ARM PICC LINE; PT LETHARGIC; PT CURRENTLY DNR; NO FAMILY AT SIDE ALL SHIFT; PT REPOSITIONED Q2H VIA NURSING STAFF; PT ALARM APPLIED, BED LOW POSITION WITH CALL LIGHT AT SIDE.
[2019-11-07 05:32] LABS: Hematocrit 26.4 % (33.0-51.0); Mean Corpuscular HGB 26.9 pg (26.0-34.0); Mean Corpuscular HGB Conc 30.3 g/dL (31.5-36.5); Mean Corpuscular Volume 89 fL (80-100); Mean Platelet Volume 9.9 fL (9.1-12.4); NRBC ABSOLUTE 0.02 K/mm3 (0.00-0.02); NRBC Auto 0.4 /100 WBC (0.0-0.2); Platelet Count 328 K/mm3 (150-400); RDW Coefficient Variation 16.7 % (11.7-14.2); Red Blood Cell Count 2.97 M/mm3 (3.80-5.20); White Blood Cell Count 5.39 K/mm3 (4.00-11.30)
--- NOTE | 2019-11-07 05:49 | NUR ---
0556 PTS JACOBSEN CATHETER WAS FOUND LAYING IN BED WITH BALLOON INTACT (EMPTIED 300ML FLUID); PT VERY LETHARGIC WITH SPEECH GARBLED; PTS SKIN PALE AND MOTTLED; PTS DAUGHTER CHRISTA NOTIFIED AT [phone] OF THE ABOVE AND SHE INTENDS TO COME [facility]. THIS NURSE ADVISED SECURITY DAUGHTER COMING WITH ACKNOWLEDGEMENT NOTED. THIS NURSE LEFT OUT JACOBSEN CATHETER AT THIS TIME. 0510 DR LUCIA CALLED WITH VOICE MAIL LEFT. [id number] DR LUCIA ADVISED JACOBSEN PULLED OUT WITH ORDERS TO LEAVE OUT AT THIS TIME AND LET DR MAXWELL DECIDE IF IT SHOULD BE REPLACED.
[2019-11-07 05:54] LABS: Alanine Aminotransfer (ALT/SGP 36 U/L (12-78); Albumin, Blood 1.8 g/dL (3.4-5.0); Albumin/Globulin Ratio 0.4 (0.8-1.8); Alk Phos 148 U/L (50-136); Anion Gap 11 mmol/L (6-16); Aspartate Aminotrans (AST/SGOT 188 U/L (12-37); Bilirubin, Total 0.6 mg/dL (0.1-1.0); Blood Urea Nitrogen 43 mg/dL (8-24); Bun/Creatinine Ratio 77.2 (12.0-20.0); CO2, Blood 21 mmol/L (21-32); Chloride, Blood 102 mmol/L (98-108); Creatinine, Blood 0.56 mg/dL (0.40-1.00); Globulin, Blood 4.3 g/dL (2.2-4.0); Glomerular Filtration Rate >60 (60-); Glucose, Blood 122 mg/dL (70-99); Potassium, Blood 4.7 mmol/L (3.5-5.5); Sodium, Blood 134 mmol/L (136-145); Total Protein, Blood 6.1 g/dL (6.4-8.2)
[2019-11-07 05:58] LABS: BAND PERCENT MAN 10 % (0-8); BASOPHILS PERCENT MAN 0 % (0-2); EOSINOPHILS PERCENT MAN 0 % (0-6); LYMPHOCYTES PERCENT MAN 2 % (21-46); METAMYELOCYTE ABSOLUTE MAN 0.05 K/mm3 (0.00-0.00); METAMYELOCYTE PERCENT MAN 1 % (0-0); MONOCYTES ABSOLUTE MAN 0.05 K/mm3 (0.16-1.47); MONOCYTES PERCENT MAN 1 % (4-13); NEUTROPHILS ABSOLUTE MAN 5.17 K/mm3 (1.96-9.15); SEG NEUTROPHILS PERCENT MAN 86 % (41-73); TOTAL CELLS COUNTED 100
--- NOTE | 2019-11-07 18:25 | NUR ---
PATIENT MORE ALERT THE DAY WENT ON. 2 UNITS OF PRBC'S GIVEN THIS SHIFT. CLINIX WITH MULTIVITAMIS INFUSING AT 100ML/HR TO L UPPER ARM PICC LINE. PATIENT HAS BEEN INCONTINENT OF URINE WITH OCCASIONAL USE OF BEDPAN. VSS, HR 110-115, AFEBRILE THIS SHIFT. CONTINUES TO HAVE VERY POOR PO INTAKE. DENIES ANY PAIN THIS SHIFT AND AGITATION MUCH IMPROVED TODAY. DAUGHTER CHRISTA AT BEDSIDE ASSISTING WITH CARE. FALL PRECAUTIONS PER UNIT PROTOCOL. MEPILEX TO SMALL BEDSORE ON R COCCYX. 3+ EDEMA TO BLE, ABDOMEN VERY LARGE/DISTENDED.
[2019-11-08 05:20] LABS: Hematocrit 33.1 % (33.0-51.0); Hemoglobin 10.4 g/dL (11.5-16.0); Mean Corpuscular HGB Conc 31.4 g/dL (31.5-36.5); NRBC ABSOLUTE 0.03 K/mm3 (0.00-0.02); NRBC Auto 0.9 /100 WBC (0.0-0.2); Platelet Count 250 K/mm3 (150-400); RDW Coefficient Variation 17.1 % (11.7-14.2); RDW Standard Deviation 50.8 fL (35.1-46.3); Red Blood Cell Count 3.85 M/mm3 (3.80-5.20)
[2019-11-08 05:24] LABS: Mean Corpuscular Volume 86 fL (80-100)
[2019-11-08 05:42] LABS: BAND PERCENT MAN 19 % (0-8); BASOPHILS PERCENT MAN 0 % (0-2); EOSINOPHILS PERCENT MAN 0 % (0-6); LYMPHOCYTES ABSOLUTE MAN 0.07 K/mm3 (0.84-5.20); LYMPHOCYTES PERCENT MAN 2 % (21-46); METAMYELOCYTE ABSOLUTE MAN 0.03 K/mm3 (0.00-0.00); METAMYELOCYTE PERCENT MAN 1 % (0-0); MONOCYTES ABSOLUTE MAN 0.03 K/mm3 (0.16-1.47); MONOCYTES PERCENT MAN 1 % (4-13); NEUTROPHILS ABSOLUTE MAN 3.36 K/mm3 (1.96-9.15); SEG NEUTROPHILS PERCENT MAN 77 % (41-73); TOTAL CELLS COUNTED 100
[2019-11-08 05:45] LABS: Alanine Aminotransfer (ALT/SGP 36 U/L (12-78); Albumin, Blood 1.6 g/dL (3.4-5.0); Albumin/Globulin Ratio 0.4 (0.8-1.8); Alk Phos 168 U/L (50-136); Anion Gap 12 mmol/L (6-16); Aspartate Aminotrans (AST/SGOT 193 U/L (12-37); Bilirubin, Total 1.1 mg/dL (0.1-1.0); Blood Urea Nitrogen 46 mg/dL (8-24); Bun/Creatinine Ratio 100.9 (12.0-20.0); CO2, Blood 21 mmol/L (21-32); Chloride, Blood 102 mmol/L (98-108); Creatinine, Blood 0.46 mg/dL (0.40-1.00); Globulin, Blood 4.4 g/dL (2.2-4.0); Glomerular Filtration Rate >60 (60-); Glucose, Blood 139 mg/dL (70-99); Magnesium, Blood 2.3 mg/dL (1.6-2.4); Phosphorus, Blood 2.6 mg/dL (2.5-4.9); Potassium, Blood 4.7 mmol/L (3.5-5.5); Sodium, Blood 135 mmol/L (136-145)
--- NOTE | 2019-11-08 05:45 | NUR ---
SHIFT SUMMARY: 69 Y/O SLENDER FEMALE RESTED COMFORTABLY 3/4 NIGHT; PT WAS ASSISTED TO BSC X 2 ASSIST (PT UNABLE BEAR ANY WEIGHT AND REQUIRED 100% STAFF ASSISTANCE WITH PIVOT AND TRANSFER); PT SKIN VERY PALE AND DRY WITH +3 PITTING EDEMA NOTED BILATERAL LOWER EXTREMITIES; ALERT TO SELF ONLY, SPEECH SLIGHTLY GARBLED AT TIMES; ASCITES NOTED; BED ALARM APPLIED, BED LOW POSITION WITH CALL LIGHT AT SIDE.
--- NOTE | 2019-11-08 11:49 | NUR ---
pt aggitated and restless at times. heat and sound therapy and movement. Dr parikh in discussed hospice. daughter terfull and fatigued will support her through decision.
--- NOTE | 2019-11-08 12:46 | NUR ---
PT. SITTING ON EDGE OF BED SUPPORTED BY Mackenzie LOPEZ PALLIAVTIVE CARE RN. NOTICABLY SOB. INDICATING SHE WANTS UP IN A CHAIR. 2.5 OF ROXANOL GIVEN AND PT. TRANSFERRED TO RECLINER. REFUSES ANY OTHER MEDS. PT. DAUGHTER IN ROOM.
--- NOTE | 2019-11-08 17:23 | NUR ---
PT. WAS CHANGED TO COMFORT CARE TODAY AROUND NOON. PT. REFUSES PAIN MEDS MOST OF THE TIME. IF YOU REFER TO THEM SOMETHING TO MAKE HER MORE COMFORABLE OR TO HELP HER SLEEP SHE IS MORE LIKELY TO TAKE THEM. DAUGHTER HAS BEEN AT BEDSIDE ALL DAY. PT. REFUSING FOOD.
--- NOTE | 2019-11-08 17:43 | NUR ---
pt resting comfortabley in bed. Breathing even no chough noted at this time
--- NOTE | 2019-11-09 07:32 | NUR ---
SHIFT SUMMARY: 69 Y/O FEMALE RESTED COMFORTABLY ALL SHIFT; PT IS COMFORT CARE; DAUGHTER CHRISTA SPENT ENTIRE NIGHT AT SIDE AND IS VERY SUPPORTIVE OF MOTHER; BED ALARM APPLIED, BED LOW POSITION WITH CALL LIGHT AT SIDE.
--- NOTE | 2019-11-09 13:30 | NUR ---
PT. MOANING AND PULLING AT GOWN AND TRYING TO PUT LEGS OVER SIDE OF BED. HAVING NOTICIBLE SOB. ROXANOL GIVEN FOR PAIN AND SOB.
--- NOTE | 2019-11-09 14:13 | NUR ---
PT. STILL VERY RESTLESS AND HAVING RATTLE IN CHEST WITH AGONAL BREATHING. ROXANOL NOT WORKING FOR THE PAIN OR AIR HUNGER. 1 MG IV ATIVAN AND A SCOPALAMINE PATCH PLACED.
--- NOTE | 2019-11-09 15:06 | NUR ---
pt more comfortable with ativan. comfort quilt placed. Nuring encourged self care for daughter her is here and they took a break.
--- NOTE | 2019-11-09 16:00 | NUR ---
PT. RESTING COMFORTABLY AND AIR HUNGER RELIEVED.
--- NOTE | 2019-11-09 17:27 | NUR ---
PT. BECOMING RESTLESS AGAIN, AGONAL BREATHING INCREASING, 1 MG OF IV ATIVAN GIVEN WHICH SEEMS TO WORK THE BEST FOR THE PAIN, RESTLESSNESS, AND SECRETIONS. DAUGHTER AND AT BEDSIDE.
--- NOTE | 2019-11-09 23:05 | NUR ---
DTR at bedside PT unresponsive appears comfortable
--- NOTE | 2019-11-10 00:52 | NUR ---
PT from terminal ovarian cancer with mets at 0006 with DTR at bedside. PT is going to [facility] .
== END 2019-11-10 00:06 | DRG 755 ==
LOC: ER 23:28 → ERHOLD 10-22 06:15 → MEDS 10-22 06:15
PROVIDERS: Emergency Medicine; Hospitalist; Internal Medicine; Internal Medicine Endocrinology, Diabetes & Metabolism; Internal Medicine Hematology & Oncology; ADMIT Internal Medicine
PROC: 0W993ZZ Drainage of Right Pleural Cavity, Percutaneous Approach (ICD-10-PCS; principal; 2019-10-28)
PROC: 0W9N3ZX Drainage of Female Perineum, Percutaneous Approach, Diagnostic (ICD-10-PCS; 2019-10-29)
PROC: 02HV33Z Insertion of Infusion Device into Superior Vena Cava, Percutaneous Approach (ICD-10-PCS; 2019-11-04)
DX: C56.9 Malignant neoplasm of unspecified ovary (principal); C78.00 Secondary malignant neoplasm of unspecified lung; C78.6 Secondary malignant neoplasm of retroperitoneum and peritoneum; C78.7 Secondary malignant neoplasm of liver and intrahepatic bile duct; E44.0 Moderate protein-calorie malnutrition; R18.0 Malignant ascites; J91.0 Malignant pleural effusion; D63.8 Anemia in other chronic diseases classified elsewhere; E88.09 Other disorders of plasma-protein metabolism, not elsewhere classified; Z51.5 Encounter for palliative care; Z66 Do not resuscitate; Z68.22 Body mass index [BMI] 22.0-22.9, adult
CPT/HCPCS: 32555; 36415; 36430; 36569; 49180; 71045; 71046; 74176; 77012; 80048; 80053; 81001; 82140; 82945; 82947; 83615; 83690; 83735; 83880; 83986; 84100; 84157; 84484; 85025; 85027; 85610; 85730; 86304; 86850; 86900; 86901; 86923; 87070; 87205; 88108; 88305; 88341; 88342; 89051; 93005; 93010; 93970; 96365; 96375; 96409; 97110; 97116; 97140; 97162; 97166; 97530; 97535; 99285-25; A9270-GY; C1751; J1100; J1650; J1940; J2060; J2405; J2765; J3010; J7050; J7060; J9045; J9267; P9016; P9046